=== PATIENT | female | born 1985 | race Caucasian/White ===

== ENCOUNTER 2023-12-02 04:38 | Emergency (ER) | payer BC, SELFPAY ==
[2023-12-02 04:41] VITALS: BP 221/130; PULSE 93; RESP 18; TEMP 36.6; O2SAT 98
--- NOTE | 2023-12-02 07:44 | ED.SKABFB ---
HPI - Skin/Abscess/Foreign Bdy General Chief complaint: Skin/Abscess/Foreign Body Stated complaint: facial swelling Time Seen by Provider: 12/02/23 06:59 History of Present Illness HPI narrative: Patient is a 37-year-old female who presents ER with swelling to her face. For the last 5 days she has been having a rash to her forehead. She was seen in urgent care and prescribed Valtrex and cephalexin. She does not think the areas redness have worsened but she has developed edema in her upper lids bilaterally this morning. No eye pain or tearing. No difficulty seeing. She has itchiness to her forehead and moving into the scalp on the right side. No fevers or chills or sweats. Patient does have history of chickenpox when she was younger. Related Data Home Medications Medication Instructions Recorded Confirmed cephalexin 500 mg capsule mg 12/02/23 valacyclovir 1 gram tablet mg 12/02/23 (Valtrex) Allergies Allergy/AdvReac Type Severity Reaction Status Date / Time No Known Allergies Allergy Verified 12/02/23 05:11 Review of Systems Constitutional: Constitutional: Reports no additional constitutional complaints Eyes: Eyes: Reports no additional eye complaints Integumentary/Breasts: Skin/Breast: Reports pruritus, Reports erythema, Reports rash and Denies skin ulcer PMFSH Past Medical History Medical History (Updated 12/02/23 @ 07:53 by Ady Garcia MD) Hypertension Exam Narrative: GENERAL: Well-appearing, well-nourished, and in no acute distress. HEAD: Normocephalic, atraumatic. EYES: PERRL and EOMI. No conjunctival injection. Mild edema to the medial upper lid/eyebrow region bilaterally. ENT: Mucous membranes moist. SKIN: Warm, dry. Shingles type rash to the center right of the forehead with clusters of bumps. No vesicles. Mild edema noted. NEURO: Alert and oriented x3. PSYCH: Normal mood and affect. Course Vital Signs Vital signs: Vital Signs Temperature 97.8 F 12/02/23 04:41 Pulse Rate 93 12/02/23 04:41 Respiratory Rate 18 12/02/23 04:41 Blood Pressure 221/130 H 12/02/23 04:41 Pulse Oximetry 98 12/02/23 04:41 Oxygen Delivery Room Air 12/02/23 04:41 Temperature 97.8 F 12/02/23 04:41 Pulse Rate 93 12/02/23 04:41 Respiratory Rate 18 12/02/23 04:41 Blood Pressure 221/130 H 12/02/23 04:41 Pulse Oximetry 98 12/02/23 04:41 Oxygen Delivery Room Air 12/02/23 04:41 MDM - Skin/Abscess/Foreign Bdy MDM Narrative Medical decision making narrative: -Course: No issues in the ER. Educated on treatment plan. Patient noncompliant with hypertension medications over prescribed in the past. -Co-morbidities complicating care: None -Hx from independent Sources: Patient -Independent interpretation of studies: None -Interventions: None -Shared decision making / Disposition: Discharged home. Change cephalexin to Bactrim. Discharge Plan Discharge Clinical Impression: Shingles, Cellulitis, Hypertension Patient Disposition: Home, Self-Care Condition: Stable Instructions: Shingles (ED), Cellulitis (ED), Chronic Hypertension (ED) Additional Instructions: Discontinue your cephalexin. Start Bactrim. You should be at the peak for the worst symptoms from your shingles. Additionally, you have uncontrolled hypertension. Establish care with primary care doctor. But not controlling this disease you can developed kidney failure heart failure. Prescriptions: New sulfamethoxazole-trimethoprim [Bactrim DS] 800-160 mg tablet 1 tablet PO Q12H Qty: 14 0RF No Action valacyclovir [Valtrex] 1 gram Tablet cephalexin 500 mg Capsule Follow-up/Referrals: Alberto Whitlock MD [Physician] - 1 Week UNKNOWN,DOCTOR [Non-Staff] -
[2023-12-02 07:46] VITALS: BP 197/119; PULSE 80; RESP 16; O2SAT 97
== END 2023-12-02 08:03 | disposition home or self-care (01) ==
PROVIDERS: Emergency Provider Emergency Medicine
DX: B02.9 Zoster without complications (principal); L03.211 Cellulitis of face; I10 Essential (primary) hypertension
CPT/HCPCS: 99283